=== PATIENT | female | born 1965 | race Caucasian/White ===

== ENCOUNTER 2019-03-15 04:34 | Emergency (ER) | payer OTHER ==
--- NOTE | 2019-03-15 04:51 | PDOC ---
History of Present Illness <Deya Lawrence - Last Filed: 03/15/19 06:30> - History of Present Illness Initial Comments: 53 year old female with PMH of anxiety and GERD presenting with epigastric/ ruq pain since 2-3 AM this morning. States that she had a similar pain 10 days prior but it went away on its own. This pain woke her up out of her bed at 2-3 Am today. Describes it as a sharp epigastric pain. Also notes 2-3 days of sour taste in her mouth, Denies fevers, chills, nausea, vomiting, diarrhea, chest pain, or other symptoms. Of note, she only take her famotidine as needed and she took one dose at night, She also is not taking her amytriptiline as prescribed as she takes it "when I'm anxious". 03/15/19 05:10 <Loida Cervantes - Last Filed: 03/15/19 06:36> - General Stated Complaint: ABD PAIN Time Seen by Provider: 03/15/19 04:51 Past History <Deya Lawrence - Last Filed: 03/15/19 06:30> - Past Medical History COPD: No HTN: Yes Psychiatric Problems: Yes - Suicide/Smoking/Psychosocial Hx Smoking History: Never smoked Have you smoked in the past 12 months: No Hx Alcohol Use: No Drug/Substance Use Hx: No Substance Use Type: None <Loida Cervantes - Last Filed: 03/15/19 06:36> - Past Medical History Allergies/Adverse Reactions: Allergies Allergy/AdvReac Type Severity Reaction Status Date / Time No Known Allergies Allergy Verified 03/15/19 04:52 Home Medications: Ambulatory Orders NK [No Known Home Medication] 02/20/18 Review of Systems - Review of Systems Constitutional: No: Chills, Diaphoresis, Fever HEENTM: No: Eye Pain, Blurred Vision, Tearing Respiratory: No: Cough, Orthopnea, Shortness of Breath, Productive cough Cardiac (ROS): No: Chest Pain, Irregular Heart Rate ABD/GI: Yes: Indigestion. No: Diarrhea, Nausea, Vomiting : No: Burning, Dysuria, Discharge Musculoskeletal: No: Back Pain, Joint Pain Integumentary: No: Bruising, Erythema Neurological: No: Headache, Numbness, Paresthesia Psychiatric: Yes: Anxiety. No: Depression Hematologic/Lymphatic: No: Anemia, Blood Clots, Easy Bleeding <HelenMichaelolga - Last Filed: 03/15/19 06:36> *Physical Exam - Vital Signs Last Vital Signs Temp Pulse Resp BP Pulse Ox 97.8 F 61 20 120/77 98 03/15/19 04:53 03/15/19 04:53 03/15/19 04:53 03/15/19 04:53 03/15/19 04:53 <Deya Lawrence - Last Filed: 03/15/19 06:30> - Physical Exam General Appearance: Yes: Nourished, Appropriately Dressed. No: Apparent Distress HEENT: positive: EOMI, SKYLAR, Normal ENT Inspection, Normal Voice Neck: positive: Trachea midline, Normal Thyroid, Supple. negative: Tender, Rigid Respiratory/Chest: positive: Lungs Clear, Normal Breath Sounds. negative: Chest Tender, Respiratory Distress, Accessory Muscle Use Cardiovascular: positive: Regular Rhythm, Regular Rate Gastrointestinal/Abdominal: positive: Normal Bowel Sounds, Tender (epigastric tenderenss to palpation), Flat, Soft Lymphatic: negative: Adenopathy, Tenderness Musculoskeletal: positive: Normal Inspection. negative: Decreased Range of Motion Extremity: positive: Normal Capillary Refill, Normal Inspection, Normal Range of Motion. negative: Tender Integumentary: positive: Normal Color, Dry, Warm Neurologic: positive: Fully Oriented, Alert, Normal Mood/Affect, Normal Response , Motor Strength 5/5 <Loida Cervantes - Last Filed: 03/15/19 06:36> ED Treatment Course - LABORATORY CBC & Chemistry Diagram: 03/15/19 05:15 03/15/19 05:15 - ADDITIONAL ORDERS Additional order review: Laboratory Results 03/15/19 05:15 Sodium 140 Potassium 4.2 Chloride 106 Carbon Dioxide 28 Anion Gap 5 L BUN 17.4 Creatinine 0.6 Est GFR (CKD-EPI)AfAm 122.32 Est GFR (CKD-EPI)NonAf 105.54 Random Glucose 113 H Calcium 8.4 L Total Bilirubin 0.2 AST 14 L ALT 34 Alkaline Phosphatase 89 Total Protein 7.4 Albumin 3.7 Total Amylase 205 H Lipase 190 03/15/19 05:15 RBC 3.89 MCV 92.5 MCHC 34.7 RDW 13.3 MPV 8.2 Neutrophils % 61.6 Lymphocytes % 30.8 Monocytes % 4.7 Eosinophils % 2.5 Basophils % 0.4 - Medications Given in the ED: ED Medications Discontinued Medications Generic Name Dose Route Start Last Admin Trade Name Lilian PRN Reason Stop Dose Admin Acetaminophen 1,000 mg 03/15/19 05:48 03/15/19 06:04 Ofirmev Injection - IVPB 03/15/19 05:49 1,000 mg ONCE ONE Administration Al Hydroxide/Mg Hydroxide 30 ml 03/15/19 05:09 03/15/19 05:16 Mylanta Oral Suspension - PO 03/15/19 05:10 30 ml ONCE ONE Administration Dicyclomine HCl 20 mg 03/15/19 06:17 03/15/19 06:27 Bentyl - PO 03/15/19 06:18 20 mg ONCE ONE Administration Famotidine/Sodium Chloride 20 mg in 50 mls @ 100 mls/hr 03/15/19 05:09 05:16 Pepcid 20 Mg Premixed Ivpb - IVPB 03/15/19 05:38 100 mls/hr ONCE ONE Administration Morphine Sulfate 4 mg 03/15/19 06:05 03/15/19 06:15 Morphine Injection - IVPUSH 03/15/19 06:06 4 mg ONCE ONE Administration Sodium Chloride 1,000 ml 03/15/19 06:06 03/15/19 06:15 Normal Saline - IV 03/15/19 06:07 1,000 ml ONCE ONE Administration Sucralfate 1 gm 03/15/19 05:49 03/15/19 06:04 Carafate Oral Suspension - PO 03/15/19 05:50 1 gm ONCE STA Administration <Deya Lawrence - Last Filed: 03/15/19 06:30> - LABORATORY CBC & Chemistry Diagram: 03/15/19 05:15 03/15/19 05:15 <Loida Cervantes - Last Filed: 03/15/19 06:36> Medical Decision Making - Medical Decision Making 53 year old female with history of GERD presenting with epigastric tenderness of sudden onset with bad taste in her mouth. POCUS negative for cholelithiasis. Pain did not improve with pepcid, maalox, and carafate. 03/15/19 05:13 Patient became nauseous and vomitied. Will Give morphine and IV NS. Will Give Bentyl and reexamine. 03/15/19 06:14 Improved after morphine, Bentyl and IV NS. Will DC with GI follow up, ranitidine use instructions, and Maalox. 03/15/19 06:32 <Loida Cervantes - Last Filed: 03/15/19 06:36> *DC/Admit/Observation/Transfer <Deya Lawrence - Last Filed: 03/15/19 06:30> <Loida Cervantes - Last Filed: 03/15/19 06:36> Diagnosis at time of Disposition: GERD (gastroesophageal reflux disease) Qualifiers: Esophagitis presence: without esophagitis Qualified Code(s): K21.9 - Gastro- esophageal reflux disease without esophagitis - Discharge Dispostion Disposition: HOME Condition at time of disposition: Improved - Referrals Referrals: Samira Aguilera [Primary Care Provider] - Oli Stevenson MD [Staff Physician] - - Patient Instructions Printed Discharge Instructions: GERD Diet Additional Instructions: Por favor, evite el alcohol y las comidas picantes. Por favor tome cabral ranitidina todos los miller. Por favor, tome Maalox despus de las comidas para aliviar mary sntomas. Grecia portia dell con cabral PCP y el gastroenterlogo en kvng documento. Regrese a la addy de emergencias si tiene sntomas nuevos o que empeoran. Print Language: IRAQI - Post Discharge Activity
[2019-03-15 04:54] VITALS: TEMP 97.8; BMI 26.5
--- NOTE | 2019-03-15 05:01 | PDOC ---
Attending Attestation - Resident Resident Name: Loida Cervantes - ED Attending Attestation I have performed the following: I have examined & evaluated the patient, The case was reviewed & discussed with the resident, I agree w/resident's findings & plan - HPI HPI: 03/15/19 06:18 Pt ate hot chilis and beer and upset her gastritis. She has no fever and no chills. She takes her gastritis meds sparingly, only when she needs it. - Physicial Exam PE: 03/15/19 06:22 Agree with resident exam, however, pt has epigastri pain more than RUQ pain.. She has little RUQ pain, and this is not cholecystitis. - Medical Decision Making 03/15/19 06:23 Pt received meds for pain and she will be discharged. SHe needs to follow with her GI doc and eat non acidic foods.
[2019-03-15] MEDS ORDERED: FAMOTIDINE 20 MG/50 ML IVPB 20 MG/50 ML MG IVPB ONE ×2 (05:09→05:11)
[2019-03-15] MEDS ORDERED: MAG HYDROX/AL HYDROX/SIMETH 30 ML UNIT-DOSE CUP PO ONE (05:09)
[2019-03-15] MEDS ORDERED: MAG HYDROX/AL HYDROX/SIMETH 30 ML UNIT-DOSE CUP ONE (05:11)
[2019-03-15 05:26] LABS: BASO % 0.4 % (0-2.0); EOS % 2.5 % (0-4.5); HEMOGLOBIN 12.5 GM/dL (10.7-15.3); LYMPH % 30.8 % (8-40); MCH 32.1 pg (25.7-33.7); MCHC 34.7 g/dl (32.0-36.0); MEAN CELL VOLUME 92.5 fl (80-96); MEAN PLT VOLUME 8.2 fl (7.5-11.1); MONO % 4.7 % (3.8-10.2); NEUT % 61.6 % (42.8-82.8); RBC 3.89 M/mm3 (3.60-5.2); RDW 13.3 % (11.6-15.6); WHITE BLOOD COUNT 6.4 K/mm3 (4.0-10.0)
[2019-03-15 05:47] LABS: ALBUMIN 3.7 g/dl (3.4-5.0); BILIRUBIN,TOTAL 0.2 mg/dL (0.2-1); BLOOD UREA NITROGEN 17.4 mg/dL (7-18); CALCIUM 8.4 mg/dL (8.5-10.1); CREATININE 0.6 mg/dL (0.55-1.3); POTASSIUM 4.2 mmol/L (3.5-5.1); TOT PROT 7.4 g/dl (6.4-8.2)
[2019-03-15] MEDS ORDERED: ACETAMINOPHEN 1000 MG/100 ML VIAL (NON FORMULARY) IVPB ONE (05:48)
[2019-03-15] MEDS ORDERED: SUCRALFATE 1 GM/10 ML UNIT DOSE CUPS PO STA (05:49)
[2019-03-15] MEDS ORDERED: ACETAMINOPHEN INJECTION 100 ML IVPB ONE (05:57)
[2019-03-15] MEDS ORDERED: SUCRALFATE 1 GM TABLET (FP) ONE (05:58)
[2019-03-15] MEDS ORDERED: morphine CARPU-JECT 4 MG/1 ML DISP.SYRIN IVPUSH ONE (06:05)
[2019-03-15] MEDS ORDERED: SODIUM CHLORIDE 0.9% 500 ML INFUS.BAG IV ONE (06:06)
[2019-03-15] MEDS ORDERED: morphine SULFATE 4 MG/ML VIAL ONE (06:08)
[2019-03-15] MEDS ORDERED: DICYCLOMINE HCL 20 MG TABLET PO ONE (06:17)
[2019-03-15] MEDS ORDERED: DICYCLOMINE HCL 10 MG CAPSULE ONE (06:24)
[2019-03-15 06:46] LABS: PLATELET COUNT 157 K/MM3 (134-434)
[2019-03-15 06:49] VITALS: BP 131/89; PULSE 80
== END 2019-03-15 06:49 | disposition home or self-care (01) ==
LOC: JER 04:34
PROC: 3E033GC Introduction of Other Therapeutic Substance into Peripheral Vein, Percutaneous Approach (ICD-10-PCS; principal; 2019-03-15)
PROC: 3E033NZ Introduction of Analgesics, Hypnotics, Sedatives into Peripheral Vein, Percutaneous Approach (ICD-10-PCS; 2019-03-15)
PROC: 3E033NZ Introduction of Analgesics, Hypnotics, Sedatives into Peripheral Vein, Percutaneous Approach (ICD-10-PCS; 2019-03-15)
DX: K21.9 Gastro-esophageal reflux disease without esophagitis (principal)
CPT/HCPCS: 36415; 80053; 82150; 83690; 85025; 96365; 96375; 99282-25; J0131

== ENCOUNTER 2019-10-08 04:30 | Emergency (ER) | payer OTHER ==
[2019-10-08 04:52] VITALS: TEMP 98.2; BMI 25.6
[2019-10-08] MEDS ORDERED: ACETAMINOPHEN 1000 MG/100 ML VIAL (NON FORMULARY) IVPB ONE (05:01)
[2019-10-08] MEDS ORDERED: ONDANSETRON 4 MG/2 ML VIAL IVPUSH ONE (05:01)
[2019-10-08] MEDS ORDERED: SODIUM CHLORIDE 1,000 ML IV STA (05:01)
[2019-10-08] MEDS ORDERED: FAMOTIDINE 20 MG/50 ML IVPB 20 MG/50 ML MG IVPB ONE ×2 (05:10→05:30)
[2019-10-08] MEDS ORDERED: ACETAMINOPHEN INJECTION 100 ML IVPB ONE (05:29)
[2019-10-08] MEDS ORDERED: ONDANSETRON 4 MG/2 ML VIAL ONE (05:29)
--- NOTE | 2019-10-08 05:53 | PDOC ---
History of Present Illness - General Chief Complaint: Pain, Acute Stated Complaint: ABD PAIN Time Seen by Provider: 10/08/19 04:54 History Source: Patient - History of Present Illness Initial Comments: 10/08/19 05:21 Patient is a 54F with history of gastritis here today complaining of abdominal pain that started roughly twelve hours ago. Patient states that she had several episodes of NBNB emesis overnight. Endorses associated chills. Denies chest pain , shortness of breath, dysuria, diarrhea, constipation. Patient states that she' s concerned about some spicy tacos that she ate. Past History - Past Medical History Allergies/Adverse Reactions: Allergies Allergy/AdvReac Type Severity Reaction Status Date / Time No Known Allergies Allergy Verified 10/08/19 04:42 Home Medications: Ambulatory Orders NK [No Known Home Medication] 02/20/18 COPD: No HTN: Yes Psychiatric Problems: Yes - Psycho Social/Smoking Cessation Hx Smoking History: Never smoked Have you smoked in the past 12 months: No Information on smoking cessation initiated: No Hx Alcohol Use: No Drug/Substance Use Hx: No Substance Use Type: None Review of Systems - Review of Systems Able to Perform ROS?: Yes Comments:: 10/08/19 05:53 GENERAL/CONSTITUTIONAL: No fever or chills. No weakness. HEAD, EYES, EARS, NOSE AND THROAT: No change in vision. No sore throat. CARDIOVASCULAR: No chest pain or shortness of breath RESPIRATORY: No cough, wheezing, or hemoptysis. GASTROINTESTINAL: +nausea, +vomiting, no diarrhea or constipation. GENITOURINARY: No dysuria, frequency, or change in urination. MUSCULOSKELETAL: No joint or muscle swelling or pain. No neck or back pain. SKIN: No rash NEUROLOGIC: No headache, vertigo, loss of consciousness, or change in strength/ sensation. ALLERGIC/IMMUNOLOGIC: No hives or skin allergy. *Physical Exam - Vital Signs Last Vital Signs Temp Pulse Resp BP Pulse Ox 98.2 F 60 18 136/72 100 10/08/19 04:42 10/08/19 04:42 10/08/19 04:42 10/08/19 04:42 10/08/19 04:42 - Physical Exam 10/08/19 05:59 GENERAL: Awake, alert, and fully oriented, in no acute distress HEAD: No signs of trauma, normocephalic, atraumatic EYES: PERRLA, EOMI, sclera anicteric, conjunctiva clear ENT: Auricles normal inspection, hearing grossly normal, nares patent, oropharynx clear without exudates. Moist mucosa NECK: Normal ROM, supple, no lymphadenopathy, JVD, or masses LUNGS: No distress, speaks full sentences, clear to auscultation bilaterally HEART: Regular rate and rhythm, normal S1 and S2, no murmurs, rubs or gallops, peripheral pulses normal and equal bilaterally. ABDOMEN: Soft, +RUQ tenderness, negative de jesus, normoactive bowel sounds. No guarding, no rebound. No masses EXTREMITIES: Normal inspection, Normal range of motion, no edema. No clubbing or cyanosis. NEUROLOGICAL: Cranial nerves II through XII grossly intact. Normal speech, normal gait, no focal sensorimotor deficits SKIN: Warm, Dry, normal turgor, no rashes or lesions noted. ED Treatment Course - LABORATORY CBC & Chemistry Diagram: 10/08/19 05:21 10/08/19 05:21 Medical Decision Making - Medical Decision Making 10/08/19 05:59 Patient is 54F with history of gastritis here today with RUQ abdominal pain. Vitals normal and stable. DDx includes, but is not limited to: gastritis, gastroentiritis, uti, cholecystitis. POCUS ultrasound with Dr Luna shows no signs of acute cholecystitis or cbd dilation. Patient appears well. Will evaluate further with abdominal labs, troponin, ekg. Will treat with abdominal cocktail. Likely discharge. EKG shows sinus bradycardia with rate of 57. No st elevations/depressions. Normal axis. T wave inversions in V2/V3. No prior EKGs available for comparison. 10/08/19 06:28 UA shows blood, no infection. LMP 2 years ago, will have patient follow as outpatient. CBC normal CMP, lipase pending. Discharge - Discharge Information Problems reviewed: Yes Clinical Impression/Diagnosis: Hematuria Qualifiers: Hematuria type: unspecified type Qualified Code(s): R31.9 - Hematuria, unspecified Condition: Good - Follow up/Referral Referrals: Samira Agiulera [Primary Care Provider] - - Patient Discharge Instructions Patient Printed Discharge Instructions: DI for Hematuria, DI for Abdominal Pain -Adult Additional Instructions: Please follow up with your primary care doctor in the next week. Please return if you have any new, worsening or concerning symptoms, especially fever, increasing pain and vomiting. - Post Discharge Activity
[2019-10-08 05:54] LABS: BASO % 0.3 % (0-2.0); EOS % 0.1 % (0-4.5); HEMATOCRIT 38.4 % (32.4-45.2); HEMOGLOBIN 13.4 GM/dL (10.7-15.3); LYMPH % 18.8 % (8-40); MCH 31.7 pg (25.7-33.7); MCHC 34.9 g/dl (32.0-36.0); MEAN CELL VOLUME 90.7 fl (80-96); MEAN PLT VOLUME 8.8 fl (7.5-11.1); MONO % 5.1 % (3.8-10.2); NEUT % 75.7 % (42.8-82.8); PLATELET COUNT 181 K/MM3 (134-434); RBC 4.23 M/mm3 (3.60-5.2); WHITE BLOOD COUNT 8.8 K/mm3 (4.0-10.0)
[2019-10-08 05:58] LABS: HYALINE CASTS 3 /lpf (0-8); URINE APPEARANCE CLEAR; URINE BACTERIA 1.7 /hpf (NEGATIVE); URINE BILIRUBIN NEGATIVE (NEGATIVE); URINE COLOR YELLOW; URINE GLUCOSE (UA) NEGATIVE (NEGATIVE); URINE KETONE TRACE (NEGATIVE); URINE LEUK ESTERASE NEGATIVE (NEGATIVE); URINE NITRITE NEGATIVE (NEGATIVE); URINE PROTEIN NEGATIVE (NEGATIVE); URINE RBC 40 /hpf (0-4); URINE UROBILINOGEN 0.2 mg/dL (0.2-1.0); URINE WBC 1 /hpf (0-5)
--- NOTE | 2019-10-08 06:02 | PDOC ---
Attending Attestation - Resident Resident Name: PankajjoshRamírez - ED Attending Attestation I have performed the following: I have examined & evaluated the patient, The case was reviewed & discussed with the resident, I agree w/resident's findings & plan - HPI HPI: 10/08/19 05:59 54 year old female with PMH of anxiety and GERD presenting with epigastric/ ruq pain since last night, a/w nausea and vomiting last night she ate spicy taco. 10/08/19 05:59 10/08/19 06:02 - Physicial Exam PE: 10/08/19 05:59 Agree with the resident's HPI and PE as documented in the electronic medical record. NAD, well appearing, EOMI, PERRL, nl conjunctiva, anicteric; neck supple. lungs clear, RRR, abdomen soft RUQ tenderness, no de jesus's sign. No rebound, no guarding. no CVAT. Back nontender. PARHAM x4, no focal neuro deficits. No peripheral edema. normal color for ethnicity, WWP. 10/08/19 06:04 - Medical Decision Making 10/08/19 06:02 Vital Signs Temp Pulse Resp BP Pulse Ox 98.2 F 60 18 136/72 100 10/08/19 04:42 10/08/19 04:42 10/08/19 04:42 10/08/19 04:42 10/08/19 04:42 DDx abdominal pain: Renal colic, biliary colic, metabolic/electrolyte derangements. GERD, PUD, esophageal spasm, pancreatitis, hepatitis, constipation , colitis, gastroenteritis, cholecystitis, hernia, appendicitis, ACS, arrhythmia , effusion. 10/08/19 06:04 10/08/19 07:07 labs and lytes reviewed, wnl normal LFTs/lipase, reassuring less likely biliary/obstruction pocus biliary neg for cholecystitis, see documentation trop neg, reassuring EKG sinus rhythm, no e/o ischemia. given GI cocktail, comfortable. no peritoneal findings no signs of infection no flank tenderness/pain, doubt renal colic or pathology. no hydro seen briefly on pocus biliary in the RUQ DC stable condition, supportive care, avoid food triggers such as spicy/fatty foods. GI and PMD followup, return precautions. Heart Score/ECG Review #1 ECG reviewed & interpreted by me at: 05:45 General ECG Interpretation: Sinus Rhythm, Normal Rate, Normal Intervals, No acute ischemic changes Compared to previous ECG there are: Previous ECG unavail 10/08/19 06:02 nonspecific T wave abnormalities, sinus rhythm at 57 bpm. normal intervals. normal axis.
[2019-10-08 06:54] LABS: ALBUMIN 4.3 g/dl (3.4-5.0); ALK PHOS 81 U/L (45-117); ANION GAP 11 MMOL/L (8-16); BILIRUBIN,TOTAL 0.4 mg/dL (0.2-1); BLOOD UREA NITROGEN 10.1 mg/dL (7-18); CALCIUM 10.2 mg/dL (8.5-10.1); CHLORIDE 99 mmol/L (98-107); CO2 25 mmol/L (21-32); CREATININE 0.5 mg/dL (0.55-1.3); GLUCOSE,RANDOM 136 mg/dL (74-106); POTASSIUM 3.4 mmol/L (3.5-5.1); SGOT/AST 15 U/L (15-37); SGPT/ALT 25 U/L (13-61); SODIUM 135 mmol/L (136-145); TOT PROT 8.6 g/dl (6.4-8.2)
[2019-10-08 07:20] VITALS: BP 150/80; PULSE 50
--- NOTE | 2019-10-08 07:42 | PDOC ---
*Physical Exam - Vital Signs Last Vital Signs Temp Pulse Resp BP Pulse Ox 98.2 F 50 L 16 150/80 100 10/08/19 04:42 10/08/19 07:19 10/08/19 07:19 10/08/19 07:19 10/08/19 07:19 - Physical Exam 10/08/19 07:40 General Appearance: Nourished. No Apparent Distress HEENT: No Pharyngeal Erythema, Tonsillar Exudate, Tonsillar Erythema Neck: No Cervical Lymphadenopathy Respiratory/Chest: Lungs Clear, Normal Breath Sounds. No Crackles, Rales, Rhonchi, Wheezing Cardiovascular: Regular Rhythm, Regular Rate. No Murmur, Gallops, Rubs Gastrointestinal/Abdominal: Normal Bowel Sounds, Soft. No Guarding, Rebound, Tenderness Musculoskeletal: No CVA Tenderness Extremity: Normal Capillary Refill Integumentary: Normal Color, Dry, Warm Neurologic: Fully Oriented, Alert, Normal Mood/Affect, Normal Response, ED Treatment Course - LABORATORY CBC & Chemistry Diagram: 10/08/19 05:21 10/08/19 05:21 - ADDITIONAL ORDERS Additional order review: Laboratory Results 10/08/19 10/08/19 10/08/19 05:41 05:21 05:21 Sodium 135 L Potassium 3.4 L Chloride 99 Carbon Dioxide 25 Anion Gap 11 BUN 10.1 Creatinine 0.5 L Est GFR (CKD-EPI)AfAm 128.97 Est GFR (CKD-EPI)NonAf 111.28 Random Glucose 136 H Calcium 10.2 H Total Bilirubin 0.4 AST 15 ALT 25 Alkaline Phosphatase 81 Creatine Kinase 125 Troponin I < 0.02 Total Protein 8.6 H Albumin 4.3 Lipase 157 Urine Color Yellow Urine Appearance Clear Urine pH 7.0 Ur Specific Durand 1.017 Urine Protein Negative Urine Glucose (UA) Negative Urine Ketones Trace H Urine Blood 2+ H Urine Nitrite Negative Urine Bilirubin Negative Urine Urobilinogen 0.2 Ur Leukocyte Esterase Negative Urine WBC (Auto) 1 Urine RBC (Auto) 40 Urine Casts (Auto) 3 U Epithel Cells (Auto) 1.0 Urine Bacteria (Auto) 1.7 10/08/19 05:21 RBC 4.23 MCV 90.7 MCHC 34.9 RDW 13.0 MPV 8.8 Neutrophils % 75.7 D Lymphocytes % 18.8 D Monocytes % 5.1 Eosinophils % 0.1 D Basophils % 0.3 - Medications Given in the ED: ED Medications Discontinued Medications Generic Name Dose Route Start Last Admin Trade Name Lilian PRN Reason Stop Dose Admin Acetaminophen 1,000 mg 10/08/19 05:01 10/08/19 05:37 Ofirmev Injection - IVPB 10/08/19 05:02 1,000 mg ONCE ONE Administration Famotidine/Sodium Chloride 20 mg in 50 mls @ 100 mls/hr 10/08/19 05:10 05:37 Pepcid 20 Mg Premixed Ivpb - IVPB 10/08/19 05:39 100 mls/hr ONCE ONE Administration Sodium Chloride 1,000 mls @ 1,000 mls/hr 10/08/19 05:01 10/08/19 05:36 Normal Saline - IV 10/08/19 06:00 1,000 mls/hr ASDIR STA Administration Ondansetron HCl 4 mg 10/08/19 05:01 10/08/19 05:37 Zofran Injection IVPUSH 10/08/19 05:02 4 mg ONCE ONE Administration ED Progress Note - Progress Note Progress Note: 10/08/19 07:40 The patient is a 54 year old female with a history of gastritis who presents for evaluation of abdominal pain. RUQ US was noted to be unremarkable. CBC, CMP, Troponin was noted to be unremarkable as well. The patient's symptoms have improved with medication. She is pending chest plain film and dispo. Medical Decision Making - Medical Decision Making 10/08/19 07:49 Chest plain film did not demonstrate any acute pathology. The patient was reassessed and reports improvement in their symptoms. We are comfortable discharging the patient home in stable condition. Patient and family made aware of impression and plan, return precautions discussed including but not limited to worsening pain or symptoms, fevers, or signs of infection, chest pain, respiratory distress, inability to tolerate oral intake, dehydration, syncope, or neurologic changes. The patient is to follow up with PMD as recommended within 1 week, follow up information provided and the patient will call for an appointment. The patient is to take medications as instructed for duration of time and continue with supportive care, avoid triggers and precipitants. Patient is safe for outpatient follow-up. Discharge - Discharge Information Problems reviewed: Yes Clinical Impression/Diagnosis: Hematuria Qualifiers: Hematuria type: unspecified type Qualified Code(s): R31.9 - Hematuria, unspecified Abdominal pain Qualifiers: Abdominal location: unspecified location Qualified Code(s): R10.9 - Unspecified abdominal pain Condition: Good Disposition: HOME - Admission No - Additional Discharge Information Prescriptions: Famotidine [Pepcid -] 20 mg PO DAILY #14 tablet - Follow up/Referral Referrals: Samira Aguilera [Primary Care Provider] - - Patient Discharge Instructions Patient Printed Discharge Instructions: DI for Abdominal Pain-Adult, DI for Hematuria Additional Instructions: 1) Please follow-up with your primary care doctor in the next 2-3 days. Please call tomorrow to schedule a follow up appointment. If you cannot follow up with your doctor within 1 week please return to the Emergency Department for any urgent issues. 2) Your laboratory / imaging results were normal here in the ER. 3) If you have any worsening of symptoms or any other concerns, please return to the ER immediately. Return if worsening symptoms including fevers, headache, vomiting, visual or hearing disturbances, abdominal pain, chest pain, shortness of breath, syncope, dehydration, inability to take things by mouth/vomiting, altered mental status, or worsening concerning symptoms. 4) Please continue taking your home medications as directed. Your medications on discharge include Pepcid. Side effects may include upset stomach, abdominal pain, vomiting, or diarrhea. Do not drink alcohol with your medications - Post Discharge Activity
--- NOTE | 2019-10-08 11:51 | EKG ---
Test Reason : Blood Pressure : / mmHG Vent. Rate : 057 BPM Atrial Rate : 057 BPM P-R Int : 180 ms QRS Dur : 108 ms QT Int : 434 ms P-R-T Axes : 062 034 031 degrees QTc Int : 422 ms SINUS BRADYCARDIA NONSPECIFIC T WAVE ABNORMALITY ABNORMAL ECG NO PREVIOUS ECGS AVAILABLE Confirmed by NANCY MARS MD ([id number]) on 10/08/2019 11:50:52 AM Referred By: Confirmed By:NANCY MARS MD
== END 2019-10-08 08:05 | disposition home or self-care (01) ==
LOC: JER 04:30
PROC: 3E033GC Introduction of Other Therapeutic Substance into Peripheral Vein, Percutaneous Approach (ICD-10-PCS; principal; 2019-10-08)
PROC: 3E033GC Introduction of Other Therapeutic Substance into Peripheral Vein, Percutaneous Approach (ICD-10-PCS; 2019-10-08)
PROC: 3E033NZ Introduction of Analgesics, Hypnotics, Sedatives into Peripheral Vein, Percutaneous Approach (ICD-10-PCS; 2019-10-08)
PROC: BF43ZZZ Ultrasonography of Gallbladder and Bile Ducts (ICD-10-PCS; 2019-10-08)
DX: R10.9 Unspecified abdominal pain (principal); R31.9 Hematuria, unspecified; Z87.19 Personal history of other diseases of the digestive system
CPT/HCPCS: 36415; 71045-TC-FY; 76705-TC; 80053; 81003; 82550; 83690; 84484; 85025; 93005; 93010; 99283-25; J0131; J7030